=== PATIENT | female | born 1975 | race Caucasian/White ===

== ENCOUNTER 2020-05-28 21:34 | Emergency (ER) | payer OTHER ==
[2020-05-28 22:30] LABS: BASOPHILS % (AUTO) 0.6 %; EOSINOPHILS # (AUTO) 0.2 10^3/uL (0.0-0.7); EOSINOPHILS % (AUTO) 3.1 %; HCT - HEMATOCRIT 39.7 % (37.0-47.0); HGB - HEMOGLOBIN 13.6 g/dL (12.0-16.0); LYMPHOCYTES # (AUTO) 1.8 10^3/uL (1.5-3.5); LYMPHOCYTES % (AUTO) 25.8 %; MEAN CORPUSCULAR HGB CONC 34.3 g/dL (32.0-36.0); MEAN CORPUSCULAR VOLUME 90.4 fL (81.0-99.0); MEAN PLATELET VOLUME 10.9 fL (7.9-10.8); MONOCYTES # (AUTO) 0.6 10^3/uL (0.0-1.0); MONOCYTES % (AUTO) 7.7 %; NEUTROPHILS # (AUTO) 4.5 10^3/uL (1.5-6.6); NEUTROPHILS % (AUTO) 62.7 %; PLT - PLATELET COUNT 263 10^3/uL (130-450); RED BLOOD COUNT 4.39 10^6/uL (4.20-5.40); RED CELL DISTRIBUTION WIDTH 12.1 % (12.0-15.0); WHITE BLOOD COUNT 7.1 x10^3/uL (4.8-10.8)
[2020-05-28 22:46] LABS: ALBUMIN 4.1 g/dL (3.2-5.5); ALBUMIN/GLOBULIN RATIO 1.2 (1.0-2.2); BILIRUBIN,TOTAL 0.7 mg/dL (0.2-1.0); CALCIUM 9.6 mg/dL (8.5-10.3); CREATININE 0.8 mg/dL (0.4-1.0); TOTAL PROTEIN 7.5 g/dL (6.7-8.2)
[2020-05-29 00:02] VITALS: BP 120/82
--- NOTE | 2020-05-29 00:07 | ED Physician Documentation ---
PD HPI CHEST PAIN - Stated complaint Stated Complaint: CHEST PX, NAUSEA, SOA - Chief complaint Chief Complaint: Cardiac - History obtained from History obtained from: Patient - Additional information Additional information: 45-year-old woman with past medical history of hyperlipidemia not on medications, former smoker, presents with substernal chest pain about an hour and a half prior to arrival sudden onset radiating to the back, sharp, associated with acute shortness of breath and nausea that has since resolved. Patient denies fevers, cough, leg swelling, prior history of clots, prior cardiac history. No family history of heart attack under the age of 65. Review of Systems Ten Systems: 10 systems reviewed and negative Cardiac: reports: Chest pain / pressure Respiratory: reports: Dyspnea. denies: Cough GI: reports: Nausea. denies: Vomiting : denies: Dysuria PD PAST MEDICAL HISTORY - Past Surgical History Past Surgical History: Yes /[employer]: section - Present Medications Home Medications: Ambulatory Orders Medication Instructions Recorded Confirmed No Known Home Medications 05/28/20 05/28/20 - Allergies Allergies/Adverse Reactions: Allergies Allergy/AdvReac Type Severity Reaction Status Date / Time No Known Drug Allergies Allergy Verified 05/28/20 21:47 - Social History Does the pt smoke?: No Smoking Status: Never smoker Does the pt drink ETOH?: Yes ETOH Use: Wine Does the pt have substance abuse?: No - Immunizations Immunizations are current?: Yes PD ED PE NORMAL - Vitals Vital signs reviewed: Yes - General General: Alert and oriented X 3, No acute distress, Well developed/nourished - HEENT HEENT: Atraumatic, PERRL, EOMI - Neck Neck: Supple, no meningeal sign, No bony TTP - Cardiac Cardiac: RRR, No murmur - Respiratory Respiratory: No respiratory distress, Clear bilaterally - Abdomen Abdomen: Soft, Non tender, Non distended - Derm Derm: Normal color, Warm and dry - Extremities Extremities: No deformity, No edema - Neuro Neuro: Alert and oriented X 3 - Psych Psych: Normal mood, Normal affect Results - Vitals Vitals: Vital Signs - 24 hr 05/28/20 05/29/20 21:44 00:02 Temperature 36.2 C L Heart Rate 103 H 95 Respiratory 18 22 Rate Blood Pressure 123/79 120/82 H O2 Saturation 99 94 Oxygen O2 Source Room air - Labs Labs: Laboratory Tests 05/28/20 05/28/20 05/28/20 22:02 22:02 22:02 WBC 7.1 RBC 4.39 Hgb 13.6 Hct 39.7 MCV 90.4 MCH 31.0 MCHC 34.3 RDW 12.1 Plt Count 263 MPV 10.9 H Neut # (Auto) 4.5 Lymph # (Auto) 1.8 Prentiss # (Auto) 0.6 Eos # (Auto) 0.2 Baso # (Auto) 0.0 Absolute Nucleated RBC 0.00 Nucleated RBC % 0.0 Sodium 131 L Potassium 4.0 Chloride 97 L Carbon Dioxide 25 Anion Gap 9.0 BUN 21 H Creatinine 0.8 Estimated GFR (MDRD) 78 L Glucose 98 Calcium 9.6 Total Bilirubin 0.7 AST 20 ALT 16 Alkaline Phosphatase 46 Troponin I High Sens < 2.3 L Total Protein 7.5 Albumin 4.1 Globulin 3.4 Albumin/Globulin Ratio 1.2 Lipase 37 PD MEDICAL DECISION MAKING - ED course ED course: 45-year-old woman presents with atypical chest pain, with heart score of 1 for risk factors of former smoker. Symptoms have resolved and her EKG, chest x-ray, cardiac enzyme was normal. Strict return precautions given. She will follow up with a primary doctor in regards to her low sodium. Departure - Departure Disposition: 01 Home, Self Care Clinical Impression: Chest pain, Nausea, Hyponatremia Condition: Good Instructions: ED Chest Pain Atypical Unkn Cause Follow-Up: Bong Lion MD [Provider Admit Priv/Credential] - Nikki Palacio MD [Provider Admit Priv/Credential] - Torsten Boggs DO [Provider Admit Priv/Credential] - Comments: You were seen in the emergency department for chest pain and nausea. Your chest x-ray, lab work and EKG did not show signs of heart issues. You did have mildly low sodium of 131 on your lab work. You should follow-up with a primary doctor in order to have this evaluated further. You can access your results on your patient health portal on the [employer]. Return to the emergency department for any new or worsening symptoms or other concerns. Discharge Date/Time: 05/29/20 00:12
--- NOTE | 2020-05-29 08:42 | XRAY Report ---
PROCEDURE: Chest 1 View X-Ray INDICATIONS: Chest Pain TECHNIQUE: One view of the chest was acquired. COMPARISON: None FINDINGS: Surgical changes and devices: None. Lungs and pleura: No pleural effusions or pneumothorax. Lungs are clear. Mediastinum: Mediastinal contours appear normal. Heart size is normal. Bones and chest wall: No suspicious bony lesions. Overlying soft tissues appear unremarkable. IMPRESSION: No acute pulmonary process. The above findings are concordant with preliminary report. Reviewed by: Elaina Nash MD on 05/29/2020 8:40 AM PDT Approved by: Elaina Nash MD on 05/29/2020 8:40 AM PDT Station ID: [id number]
== END 2020-05-29 00:12 | disposition home or self-care (01) ==
LOC: ED 21:34
DX: R07.89 Other chest pain (principal); R11.0 Nausea; E87.1 Hypo-osmolality and hyponatremia; Z87.891 Personal history of nicotine dependence
CPT/HCPCS: 80053; 83690; 84484; 85025; 93005; 99284